=== PATIENT | female | born 1980 | race Caucasian/White ===

== ENCOUNTER 2025-01-12 09:51 | Outpatient (CLI) | payer OTHER ==
[2025-01-12 10:25] LABS: HEMOGLOBIN 13.9 g/dL (12.0-15.00); MEAN CORPUSCULAR HEMOGLOBIN 29.8 pg (27.00-32.0); MEAN CORPUSCULAR HGB CONC 34.6 g/dl (32.0-36.0); PLATELET COUNT 301 K/uL (150-450); RED BLOOD COUNT 4.65 M/uL (4.00-6.00); RED CELL DISTRIBUTION WIDTH 13.6 % (11.5-14.5)
[2025-01-12 10:48] LABS: PARTIAL THROMBOPLASTIN TIME 25.9 SECONDS (22.0-34.0); PROTHROMBIN TIME 10.9 SECONDS (9.0-11.5)
[2025-01-12 10:49] LABS: URINE APPEARANCE Cloudy; URINE BILIRRUBIN Negative (NEGATIVE); URINE BLOOD Trace; URINE COLOR Yellow; URINE KETONE 15 (NEGATIVE); URINE LEUKOCYTE Moderate; URINE NITRATE Negative; URINE PROTEIN Trace (NEGATIVE); URINE UROBILINOGEN 0.2 E.U./dl
[2025-01-12 10:51] LABS: URINE EPITHELIAL CELLS 28.6 uL (0.0-38.8); URINE RBC 3.3 uL (0.0-20.8); URINE WBC 864.6 uL (0.0-23.2)
[2025-01-12 11:04] LABS: ALBUMIN 4.1 gm/dL (3.4-5.0); BILIRUBIN TOTAL 0.59 mg/dL (0.3-1.2); CALCIUM 9.1 mg/dL (8.5-10.1); CREATININE SERUM 0.75 mg/dL (0.55-1.02); GFR 83.56; GLOBULINA 3.5 G/DL (2.4-3.5); POTASSIUM 3.94 mEq/L (3.5-5.1); TOTAL PROTEIN 7.6 gm/dL (6.4-8.2)
[2025-01-12 11:17] LABS: URINE BACTERIA > 9821.5 uL (0.0-1933); URINE CAST 0.29 uL (0.0-1.40); URINE GLUCOSE >=1000 MG/DL (NEGATIVE)
== END 2025-01-12 10:00 | disposition home or self-care (01) ==
LOC: RAD 09:51
PROVIDERS: ATTEND Obstetrics & Gynecology
DX: E11.9 Type 2 diabetes mellitus without complications (principal); I10 Essential (primary) hypertension; D68.9 Coagulation defect, unspecified; N39.0 Urinary tract infection, site not specified; Z01.818 Encounter for other preprocedural examination

== ENCOUNTER 2025-01-15 14:02 | Inpatient (IN) | payer OTHER ==
[~2025-01-15] VITALS: Ht 162.6 cm; Wt 70.3 kg
[2025-01-15] MEDS ORDERED: TRELEGY ELLIPT1 EACH (14:10)
[2025-01-15] MEDS ORDERED: JENTADUETO 2.51 EAC2 (14:10)
--- NOTE | 2025-01-15 14:14 | NUR ---
SE RECIBE PTE ALERTA Y ORIENTADA X3. REFIERE VARIOS EPISODIOS DE DIARREA EN [facility]. DXT [id number]
[2025-01-15] MEDS ORDERED: LACTOBACILLUS ACIDOPHILUS 1 CAP CAP PO ONE (15:00)
[2025-01-15] MEDS ORDERED: ONDANSETRON HCL 2 MG/ML VIAL IV ONE (15:00)
[2025-01-15] MEDS ORDERED: 0.9 % SODIUM CHLORIDE 500 ML IV ONE (15:00)
[2025-01-15] MEDS ORDERED: FAMOTIDINE/PF 20 MG/2 ML VIAL IV ONE (15:00)
[2025-01-15] MEDS ORDERED: METHYLPREDNISOLONE SOD SUCC 40 MG VIAL IV ONE (16:00)
[2025-01-15] MEDS ORDERED: DIPHENHYDRAMINE HCL 50 MG/ML VIAL 1ML IV ONE (16:00)
--- NOTE | 2025-01-15 16:17 | NUR ---
SE EDUCA A PTE SOBRE TX MEDICO,REFIERE ACEPTAR. SE CANALIZA Y SE COELCTAN MUESTRAS DE LAB. SE ADMINSITRAN MEDS [place] ORDEN MEDICA. PTE ENTREGA ORINA Y MUESTRA DE ESCRETA.
[2025-01-15 16:25] LABS: HEMATOCRIT 43.6 % (36.0-45.00); HEMOGLOBIN 14.8 g/dL (12.0-15.00); MEAN CELL VOLUME 86.9 fL (80.00-100.00); MEAN CORPUSCULAR HEMOGLOBIN 29.5 pg (27.00-32.0); MEAN CORPUSCULAR HGB CONC 33.9 g/dl (32.0-36.0); PLATELET COUNT 308 K/uL (150-450); RED BLOOD COUNT 5.02 M/uL (4.00-6.00); RED CELL DISTRIBUTION WIDTH 13.8 % (11.5-14.5)
[2025-01-15 16:37] LABS: POTASSIUM 3.06 mEq/L (3.5-5.1)
[2025-01-15 16:39] LABS: PH,URINE 5.5 (5.0-8.0); URINE APPEARANCE Cloudy; URINE BILIRRUBIN Negative (NEGATIVE); URINE BLOOD Moderate; URINE COLOR Yellow; URINE LEUKOCYTE Trace; URINE NITRATE Negative; URINE PROTEIN 30 (NEGATIVE); URINE UROBILINOGEN 0.2 E.U./dl
[2025-01-15 16:41] LABS: ALBUMIN 3.9 gm/dL (3.4-5.0); CALCIUM 8.5 mg/dL (8.5-10.1)
[2025-01-15 16:42] LABS: URINE BACTERIA 4480.9 uL (0.0-1933); URINE EPITHELIAL CELLS 98.7 uL (0.0-38.8); URINE RBC 2.6 uL (0.0-20.8); URINE WBC 205.6 uL (0.0-23.2)
[2025-01-15 16:46] LABS: BILIRUBIN TOTAL 0.51 mg/dL (0.3-1.2); CREATININE SERUM 0.64 mg/dL (0.55-1.02); GFR 100.35; TOTAL PROTEIN 7.9 gm/dL (6.4-8.2)
[2025-01-15 17:02] LABS: URINE CAST 1.17 uL (0.0-1.40); URINE GLUCOSE >=1000 MG/DL (NEGATIVE); URINE KETONE 40 (NEGATIVE); URINE MUCUS HEAVY
[2025-01-15] MEDS ORDERED: PIPERACILLIN/TAZOBACTAM SODIUM 3.375 GM in DEXTROSE 5 % IN WATER 100 ML IV SCH (20:26)
[2025-01-15] MEDS ORDERED: INSULIN LISPRO 1,000 UNIT/10 ML UNITS SUBCUTANEO PRN (20:30)
[2025-01-15] MEDS ORDERED: DEXTROSE 50 % IN WATER 0.5 G/ML DISP.SYRIN IV PRN (20:30)
[2025-01-15] MEDS ORDERED: 0.9 % SODIUM CHLORIDE 1,000 ML IV SCH (20:30)
[2025-01-15] MEDS ORDERED: MORPHINE SULFATE 2 MG/ML CARTRIDGE IV PRN (20:30)
[2025-01-15] MEDS ORDERED: ONDANSETRON HCL 4 MG in 0.9 % SODIUM CHLORIDE 50 ML IV PRN (20:30)
[2025-01-15] MEDS ORDERED: ACETAMINOPHEN 500 MG GEL..CAP PO PRN (20:30)
[2025-01-16] MEDS ORDERED: FAMOTIDINE/PF 20 MG in 0.9 % SODIUM CHLORIDE 8 ML IV PUSH SCH (09:00)
[2025-01-16 10:13] LABS: URINE EPITHELIAL CELLS 62.5 uL (0.0-38.8); URINE WBC 99.5 uL (0.0-23.2)
[2025-01-16 10:14] LABS: PH,URINE 5.5 (5.0-8.0); URINE APPEARANCE Cloudy; URINE BILIRRUBIN Negative (NEGATIVE); URINE BLOOD Negative; URINE COLOR Yellow; URINE LEUKOCYTE Negative; URINE NITRATE Positive; URINE PROTEIN Negative (NEGATIVE); URINE UROBILINOGEN 0.2 E.U./dl
[2025-01-16 10:46] LABS: CALCIUM 8.9 mg/dL (8.5-10.1); CREATININE SERUM 0.7 mg/dL (0.55-1.02); GFR 90.49; POTASSIUM 3.28 mEq/L (3.5-5.1); TSH 0.658 uIU/mL (0.358-3.74)
[2025-01-16] MEDS ORDERED: DEXTROSE 5 % AND 0.9 % NACL 1,000 ML IV SCH (11:30)
[2025-01-16 15:00] VITALS: BP 119/77; O2SAT 97
[2025-01-16 16:25] LABS: URINE BACTERIA > 9821.5 uL (0.0-1933); URINE CAST 0.44 uL (0.0-1.40); URINE GLUCOSE >=1000 MG/DL (NEGATIVE); URINE KETONE 40 (NEGATIVE); URINE RBC 1.6 uL (0.0-20.8); URINE YEAST NEGATIVE /hpf
[2025-01-16] MEDS ORDERED: INSULIN GLARGINE,HUM.REC.ANLOG 1,000 UNITS/10 ML UNITS SUBCUTANEO SCH (17:00)
[2025-01-17 02:26] VITALS: BP 119/79; O2SAT 96
[2025-01-17 09:02] VITALS: BP 117/73; O2SAT 96
[2025-01-17] MEDS ORDERED: PIPERACILLIN/TAZOBACTAM SODIUM 3.375 GM VIAL IV ONE (10:37)
[2025-01-17 17:46] VITALS: BP 111/74; O2SAT 96
[2025-01-18 01:46] VITALS: BP 122/73; O2SAT 95
[2025-01-18 07:07] VITALS: BP 113/70; O2SAT 95
[2025-01-18 14:58] LABS: ALBUMIN 3.1 gm/dL (3.4-5.0); BILIRUBIN TOTAL 0.39 mg/dL (0.3-1.2); CREATININE SERUM 0.63 mg/dL (0.55-1.02); GFR 101.73; GLOBULINA 3.1 G/DL (2.4-3.5); POTASSIUM 3.25 mEq/L (3.5-5.1); TOTAL PROTEIN 6.2 gm/dL (6.4-8.2)
[2025-01-18 17:39] VITALS: BP 117/71; O2SAT 97
[2025-01-18 17:45] LABS: HEMATOCRIT 39.9 % (36.0-45.00); HEMOGLOBIN 13.4 g/dL (12.0-15.00); MEAN CORPUSCULAR HEMOGLOBIN 28.8 pg (27.00-32.0); MEAN CORPUSCULAR HGB CONC 33.5 g/dl (32.0-36.0); PLATELET COUNT 258 K/uL (150-450); RED BLOOD COUNT 4.64 M/uL (4.00-6.00); RED CELL DISTRIBUTION WIDTH 13.7 % (11.5-14.5)
[2025-01-18] MEDS ORDERED: METHYLPREDNISOLONE SOD SUCC 40 MG VIAL IV SCH (20:43)
[2025-01-18] MEDS ORDERED: IPRATROPIUM BROMIDE 0.5 MG/2.5 ML AMPUL.NEB IH SCH (21:00)
[2025-01-19 01:00] VITALS: BP 123/77; O2SAT 93
[2025-01-19 09:14] VITALS: BP 106/66; O2SAT 94
== END 2025-01-19 15:40 | disposition home or self-care (01) | DRG 390 ==
LOC: ER 14:03 → MEDI 20:52 → SEC-K 20:52 → MEDI 21:47
PROVIDERS: General Practice; Internal Medicine Endocrinology, Diabetes & Metabolism; ADMIT Internal Medicine; ATTEND Internal Medicine
PROC: BW21YZZ Computerized Tomography (CT Scan) of Abdomen and Pelvis using Other Contrast (ICD-10-PCS; principal; 2025-01-15)
PROC: 0DH68UZ Insertion of Feeding Device into Stomach, Via Natural or Artificial Opening Endoscopic (ICD-10-PCS; 2025-01-15)
PROC: 3E0F7GC Introduction of Other Therapeutic Substance into Respiratory Tract, Via Natural or Artificial Opening (ICD-10-PCS; 2025-01-18)
DX: K56.699 Other intestinal obstruction unspecified as to partial versus complete obstruction (principal); K52.9 Noninfective gastroenteritis and colitis, unspecified; E11.9 Type 2 diabetes mellitus without complications; D72.828 Other elevated white blood cell count; E86.0 Dehydration; Z79.4 Long term (current) use of insulin